=== PATIENT | female | born 1995 | race Two or more races ===

== ENCOUNTER 2022-11-15 09:15 | Emergency (ER) | payer MEDICAID ==
[~2022-11-15] VITALS: Ht 160 cm; Wt 117.9 kg
[2022-11-15 09:35] VITALS: BP 147/83; TEMP 98; O2SAT 95
[2022-11-15] MEDS ORDERED: NEOM10DR11 RIGHT EAR (09:51)
[2022-11-15] MEDS ORDERED: AMOX500C2 PO (09:51)
== END 2022-11-15 10:17 | disposition home or self-care (01) ==
LOC: ER 09:39
DX: H66.91 Otitis media, unspecified, right ear (principal); H60.501 Unspecified acute noninfective otitis externa, right ear; H92.11 Otorrhea, right ear